=== PATIENT | male | born 1975 | race Caucasian/White ===

== ENCOUNTER 2016-06-08 09:54 | Emergency (ER) | payer OTHER ==
[~2016-06-08] VITALS: Ht 180.3 cm; Wt 89.8 kg
[2016-06-08 10:01] VITALS: TEMP 37; Ht 180.3 cm; Wt 89.8 kg
[2016-06-08] MEDS ORDERED: MONT1TAB3 PO (10:16)
[2016-06-08] MEDS ORDERED: ADVIN25/60 INH (10:16)
[2016-06-08] MEDS ORDERED: CLR10 PO (10:16)
[2016-06-08] MEDS ORDERED: VNTHFA/IN INH (10:16)
[2016-06-08] MEDS ORDERED: FLUT0.15 NAE (10:16)
[2016-06-08] MEDS ORDERED: SODIUM CHLORIDE 0.9% 1000ML 500 ML IV STA (10:19)
[2016-06-08] MEDS ORDERED: ALBUT/IPRATROP 3MG/0.5MG NEB 3 ML VIAL INH STA (10:19)
[2016-06-08] MEDS ORDERED: METHYLPREDNISOLONE 125 MG VIAL IV STA (10:19)
[2016-06-08] MEDS ORDERED: SODIUM CHLORIDE 0.9% 1000ML 1,000 ML IV STA (10:19)
[2016-06-08 10:34] VITALS: O2SAT 97
[2016-06-08 11:22] LABS: BASO % 0.3 %; BASO ABS # 0.02 K/uL (0-0.2); COMPLETE YES; EOS % 2.1 %; HEMATOCRIT 40.7 % (42-52); IG% 0.3 %; LYMPH % 39.3 %; LYMPH ABS # 2.47 K/uL (1.2-3.4); MEAN CELL VOLUME 85.1 fL (80-100); MEAN CORPUSCULAR HEMOGLOBIN 30.5 pg (25-34); MEAN CORPUSCULAR HGB CONC 35.9 g/dl (32-36); MEAN PLATELET VOLUME 8.3 fL (7.4-10.4); MONO % 12.4 %; NEUT % 45.6 %; PLATELET COUNT 224 K/uL (130-400); RED BLOOD COUNT 4.78 M/uL (4.7-6.1); WHITE BLOOD COUNT 6.28 K/uL (4.8-10.8)
--- NOTE | 2016-06-08 11:26 | DIAGNOSTIC IMAGING REPORT ---
CHEST 2 VIEWS ROUTINE CLINICAL HISTORY: sob, cough COMPARISON STUDY: No previous studies for comparison. FINDINGS: The cardiac and mediastinal contours are normal. There is no evidence of focal pulmonary consolidation. There is no evidence of failure. There is minor blunting of the right posterior costophrenic angle.[ IMPRESSION: Blunting of the right posterior costophrenic angle. Otherwise negative chest. No evidence of focal pulmonary consolidation Electronically signed by: Bj Jackson M.D. 06/08/2016 11:25 AM Dictated Date/Time: 06/08/2016 11:24 AM
[2016-06-08 11:48] LABS: ALT/SGPT 63 U/L (12-78); AST/SGOT 24 U/L (15-37); BLOOD UREA NITROGEN 13 mg/dl (7-18); BUN/CREATININE RATIO 13.7 (10-20); CARBON DIOXIDE 28 mmol/L (21-32); CHLORIDE 104 mmol/L (98-107); CREATININE 0.97 mg/dl (0.60-1.40); GLUCOSE 87 mg/dl (70-99); POTASSIUM 3.3 mmol/L (3.5-5.1); SODIUM 137 mmol/L (136-145)
[2016-06-08 11:50] LABS: ALB/GLOB RATIO 1.1 (0.9-2); ALKALINE PHOSPHATASE 48 U/L (45-117)
[2016-06-08] MEDS ORDERED: DOXYCYCLINE HYCLATE 100 MG CAP PO ONE (12:00)
[2016-06-08] MEDS ORDERED: PRED20TA PO (13:02)
[2016-06-08] MEDS ORDERED: DOXY100C PO (13:02)
[2016-06-08 13:03] VITALS: BP 143/88; PULSE 84; O2SAT 98
--- NOTE | 2016-06-08 15:33 | EMERGENCY ROOM VISIT NOTE ---
History Report prepared by Ravi: Emani Mckeon Under the Supervision of: Dr. Noel Lopez M.D. First contact with patient: 10:16 Chief Complaint: SHORTNESS OF BREATH Stated Complaint: COUGH,ASTHMA,SOB History of Present Illness The patient is a 40 year old male who presents to the Emergency Room with complaints of persistent shortness of breath starting about 1 month [employer]. The patient states that his symptoms really started to be present on May 14, 2016. He states he thought he could just recover but on May 19 was seen at [facility] and was told it was either a cold or a sinus infection. He states he was then experiencing shortness of breath with chest tightness, congestion, fluid in ears, cough, and a sore throat. He states he was then given a prescription of Levaquin 750 mg a day and Prednisone for 5 days. He states when he reached the 5th day of medication he was not having relief of symptoms and the got 3 more days of Levaquin and 5 more days of Prednisone. He states that after the 10 days of medication he was having relief of all his symptoms except for his shortness of breath and tightness in his chest. He states that he has been unable to sleep due to his symptoms. The patient states that he has an emergency inhaler which he has been using more recently due to his symptoms. The patient denies getting his flu shot this year. Source of History: patient Onset: 1 month [employer] Position: chest Timing: other (persistent) Associated Symptoms: + chest pain (tightness) Note: Associated symptoms: unable to sleep Review of Systems See HPI for pertinent positives & negatives. A total of 10 systems reviewed and were otherwise negative. Past Medical & Surgical Medical Problems: (1) Asthma Family History Diabetes mellitus Social History Smoking Status: Never Smoker Alcohol Use: occasionally Drug Use: none Marital Status: single Housing Status: lives alone Occupation Status: student Current/Historical Medications Scheduled Doxycycline Hyclate (Vibramycin), 100 MG PO BID Fluticasone Prop/Salmeterol (Advair Diskus 250/50 60 Dose), 1 PUFF INH BID Fluticasone Propionate (Nasal) (Flonase Allergy Relief), 1 SPRAY KENTRELL DAILY Loratadine (Claritin), 10 MG PO DAILY Montelukast Sodium (Singulair), 10 MG PO DAILY Prednisone (Prednisone), 0 PO DAILY Scheduled PRN Albuterol Hfa (Ventolin Hfa), 2-4 PUFFS INH Q6H PRN for Shortness of Breath Allergies Coded Allergies: Dust (Unverified Allergy, Intermediate, TRIGGERS ASTHMA, 06/08/16) Molds & Smuts (Unverified Allergy, Intermediate, TRIGGERS ASTHMA, 06/08/16) Penicillins (Unverified Allergy, Intermediate, TRIGGERS ASTHMA, 06/08/16) Physical Exam Vital Signs Date Time Temp Pulse Resp B/P Pulse Ox O2 Delivery O2 Flow Rate FiO2 06/08/16 13:03 84 19 143/88 98 Room Air 06/08/16 11:32 84 18 149/91 100 Room Air 06/08/16 10:34 97 Room Air 06/08/16 10:17 75 06/08/16 10:05 98 Room Air 06/08/16 10:01 37.0 76 19 132/93 97 Room Air Physical Exam GENERAL: Patient is in no acute distress. HEENT: No acute trauma, normocephalic atraumatic, mucous membranes moist, no nasal congestion, no scleral icterus. No throat erythema or exudates. NECK: No stridor, no adenopathy, no meningismus, trachea is midline. LUNGS: Dry cough noted. Diminished breath sounds bilaterally. Breath sounds are equal bilaterally. No wheezing, crackles or rhonchi. HEART: Without murmurs gallops or rubs, regular rate and rhythm. ABDOMEN: Soft, nontender, bowel sounds positive, no hernias, no peritonitis. EXTREMITIES: No cyanosis or edema, full range of motion of all the joints without pain or difficulty, no signs for acute trauma. NEUROLOGIC: Oriented x 3, no acute motor or sensory deficits, no focal weakness. SKIN: No rash, no jaundice, no diaphoresis. Medical Decision & Procedures ER Provider Diagnostic Interpretation: X-ray results as stated below per interpretation by me and the radiologist: CHEST 2 VIEWS ROUTINE CLINICAL HISTORY: sob, cough COMPARISON STUDY: No previous studies for comparison. FINDINGS: The cardiac and mediastinal contours are normal. There is no evidence of focal pulmonary consolidation. There is no evidence of failure. There is minor blunting of the right posterior costophrenic angle.[ IMPRESSION: Blunting of the right posterior costophrenic angle. Otherwise negative chest. No evidence of focal pulmonary consolidation Electronically signed by: Bj Jackson M.D. 06/08/2016 11:25 AM Dictated Date/Time: 06/08/2016 11:24 AM Laboratory Results 06/08/16 10:40 Red Blood Count 4.78, Mean Corpuscular Volume 85.1, Mean Corpuscular Hemoglobin 30.5, Mean Corpuscular Hemoglobin Concent 35.9, Mean Platelet Volume 8.3, Neutrophils (%) (Auto) 45.6, Lymphocytes (%) (Auto) 39.3, Monocytes (%) (Auto) 12.4, Eosinophils (%) (Auto) 2.1, Basophils (%) (Auto) 0.3, Neutrophils # (Auto ) 2.86, Lymphocytes # (Auto) 2.47, Monocytes # (Auto) 0.78, Eosinophils # (Auto ) 0.13, Basophils # (Auto) 0.02 06/08/16 10:40 Test 06/08/16 10:30 06/08/16 10:40 Influenza Type A Antigen Neg for Influ A (NEG) Influenza Type B Antigen Neg for Influ B (NEG) White Blood Count 6.28 K/uL (4.8-10.8) Red Blood Count 4.78 M/uL (4.7-6.1) Hemoglobin 14.6 g/dL (14.0-18.0) Hematocrit 40.7 % (42-52) Mean Corpuscular Volume 85.1 fL (80-100) Mean Corpuscular Hemoglobin 30.5 pg (25-34) Mean Corpuscular Hemoglobin Concent 35.9 g/dl (32-36) Platelet Count 224 K/uL (130-400) Mean Platelet Volume 8.3 fL (7.4-10.4) Neutrophils (%) (Auto) 45.6 % Lymphocytes (%) (Auto) 39.3 % Monocytes (%) (Auto) 12.4 % Eosinophils (%) (Auto) 2.1 % Basophils (%) (Auto) 0.3 % Neutrophils # (Auto) 2.86 K/uL (1.4-6.5) Lymphocytes # (Auto) 2.47 K/uL (1.2-3.4) Monocytes # (Auto) 0.78 K/uL (0.11-0.59) Eosinophils # (Auto) 0.13 K/uL (0-0.5) Basophils # (Auto) 0.02 K/uL (0-0.2) RDW Standard Deviation 38.7 fL (36.4-46.3) RDW Coefficient of Variation 12.5 % (11.5-14.5) Immature Granulocyte % (Auto) 0.3 % Immature Granulocyte # (Auto) 0.02 K/uL (0.00-0.02) Anion Gap 5.0 mmol/L (3-11) Est Creatinine Clear Calc Drug Dose 109.9 ml/min Estimated GFR () 114.3 Estimated GFR (Non- 98.6 BUN/Creatinine Ratio 13.7 (10-20) Calcium Level 9.0 mg/dl (8.5-10.1) Total Bilirubin 0.6 mg/dl (0.2-1) Aspartate Amino Transf (AST/SGOT) 24 U/L (15-37) Alanine Aminotransferase (ALT/SGPT) 63 U/L (12-78) Alkaline Phosphatase 48 U/L (45-117) Troponin I < 0.015 ng/ml (0-0.045) Total Protein 7.2 gm/dl (6.4-8.2) Albumin 3.8 gm/dl (3.4-5.0) Globulin 3.4 gm/dl (2.5-4.0) Albumin/Globulin Ratio 1.1 (0.9-2) Laboratory results reviewed by me. Medications Administered Medications (Trade) Dose Ordered Sig/Matthew Route Start Time Stop Time Status Last Admin Dose Admin Sodium Chloride 500 ml @ 999 mls/hr Q31M STAT IV 06/08/16 10:06/08/16 10:49 DC 06/08/16 10:51 999 MLS/HR Sodium Chloride (Nss 1000ml) 1,000 ml @ 200 mls/hr Q5H STAT IV 06/08/16 10:06/08/16 14:02 DC 06/08/16 10:52 200 MLS/HR Methylprednisolone Sodium Succinate (Solu-Medrol IV) 80 mg NOW STAT IV 06/08/16 10:19 06/08/16 10:23 DC 06/08/16 10:51 80 MG Albuterol/ Ipratropium (Duoneb) 3 ml NOW STAT INH 06/08/16 10:19 06/08/16 10:23 DC 06/08/16 10:50 3 ML Doxycycline Hyclate (Vibramycin Cap) 100 mg ONE ONCE PO 06/08/16 12:00 06/08/16 12:01 DC 06/08/16 12:00 100 MG ECG Indication: SOB/dyspnea Rate (beats per minute): 67 Rhythm: normal sinus Findings: no acute ischemic change, no ectopy ED Course 1018: The patient was evaluated in room A12B. A complete history and physical exam was performed. 1019: Ordered Duoneb 3 ml INH, Solu-Medrol IV 80 mg IV, Sodium Chloride 1,000 ml @ 200 mls/hr IV, Sodium Chloride 500 ml @ 999 mls/hr IV. 1200: Ordered Vibramycin Cap 100 mg PO. 1250: Reevaluated the patient. Discussed results and discharge instructions: He verbalized understanding and agreement. The patient is ready for discharge. Medical Decision The patient is a 40 year old male who presents to the ED with complaints of shortness of breath. Differential diagnoses considered include bronchitis, pneumonia, pneumothorax, CHF, influenza, electrolyte imbalance, cardiac ischemia. There is no leukocytosis or concerning anemia. No significant electrolyte abnormality, kidney failure or hepatitis. Influenza testing is negative. Chest film shows no pneumonia or CHF. EKG shows a normal sinus rhythm, no acute ischemia. Cardiac enzyme testing times one is not consistent with acute cardiac injury. Patient received IV saline, IV Solu-Medrol, a DuoNeb. He was given a dose of oral doxycycline. The patient very likely has an acute bronchitis with a flare of his asthma. He is being discharged on doxycycline, a steroid taper, frequent albuterol use. He can return if worsening or not improving. Impression Primary Impression: Acute bronchitis Additional Impression: Acute asthma exacerbation Scribe Attestation The scribe's documentation has been prepared under my direction and personally reviewed by me in its entirety. I confirm that the note above accurately reflects all work, treatment, procedures, and medical decision making performed by me. Departure Information Dispostion Home / Self-Care Prescriptions Doxycycline Hyclate (VIBRAMYCIN) 100 Mg Cap 100 MG PO BID for 10 Days, #20 CAP Prov: Noel Lopez M.D. 06/08/16 Prednisone (Prednisone) 20 Mg Tab 0 PO DAILY, #14 TAB 3 TABS DAILY FOR 2 DAYS, THEN 2 TABS DAILY FOR 2 DAYS, THEN 1 TAB DAILY FOR 2 DAYS, THEN 1/2 TAB DAILY FOR 2 DAYS. Prov: Noel Lopez M.D. 06/08/16 Referrals [facility] (PCP) Forms HOME CARE DOCUMENTATION FORM, IMPORTANT VISIT INFORMATION Patient Instructions My [facility] Additional Instructions doxycycline 2x per day for 10 days albuterol 3 puffs every 4 hours prednisone as directed fluids rest return if worsening or not improving chest film today was ok Problem Qualifiers
== END 2016-06-08 13:11 | disposition home or self-care (01) ==
LOC: C.EDB 09:57 → C.EDA 13:11
DX: J45.901 Unspecified asthma with (acute) exacerbation (principal); J20.9 Acute bronchitis, unspecified; Z83.3 Family history of diabetes mellitus; Z79.899 Other long term (current) drug therapy

== ENCOUNTER 2017-06-08 13:00 | Emergency (ER) | payer OTHER ==
[~2017-06-08] VITALS: Ht 180.3 cm; Wt 90.2 kg
[~2017-06-08 13:00] MED LIST: ADVIN25/60 INH; CLR10 PO; FLUT0.15 NAE; MONT1TAB3 PO; VNTHFA/IN INH
[2017-06-08 13:11] VITALS: TEMP 37; Ht 180.3 cm; Wt 90.2 kg
[2017-06-08] MEDS ORDERED: ALBUT/IPRATROP 3MG/0.5MG NEB 3 ML VIAL INH STA ×2 (14:37→16:01)
[2017-06-08] MEDS ORDERED: METHYLPREDNISOLONE 125 MG VIAL IV STA (14:38)
[2017-06-08 14:49] VITALS: O2SAT 99
[2017-06-08 15:05] LABS: BASO % 0.1 %; BASO ABS # 0.01 K/uL (0-0.2); EOS % 0.3 %; EOS ABS # 0.02 K/uL (0-0.5); HEMATOCRIT 46.7 % (42-52); HEMOGLOBIN 16.4 g/dL (14.0-18.0); IG# 0.02 K/uL (0.00-0.02); LYMPH % 12.6 %; LYMPH ABS # 0.99 K/uL (1.2-3.4); MEAN CELL VOLUME 87.1 fL (80-100); MEAN CORPUSCULAR HEMOGLOBIN 30.6 pg (25-34); MEAN CORPUSCULAR HGB CONC 35.1 g/dl (32-36); MEAN PLATELET VOLUME 8.5 fL (7.4-10.4); MONO % 11.6 %; MONO ABS # 0.91 K/uL (0.11-0.59); NEUT % 75.1 %; PLATELET COUNT 194 K/uL (130-400); RED CELL DISTRIBUTION WIDTH CV 12.6 % (11.5-14.5); RED CELL DISTRIBUTION WIDTH SD 40.4 fL (36.4-46.3); WHITE BLOOD COUNT 7.85 K/uL (4.8-10.8)
--- NOTE | 2017-06-08 15:21 | DIAGNOSTIC IMAGING REPORT ---
CHEST ONE VIEW PORTABLE CLINICAL HISTORY: EVALUATE RESPIRATORY DISTRESS.DYSPNEA COMPARISON STUDY: Chest radiograph June 08, 2016. FINDINGS: The lung volumes are normal. No pneumothorax or pleural effusion is noted. There is no consolidation or evidence of pulmonary edema. Cardiomediastinal silhouette is normal. IMPRESSION: No acute cardiopulmonary findings. Electronically signed by: Edson Negrete M.D. 06/08/2017 3:20 PM Dictated Date/Time: 06/08/2017 3:20 PM
[2017-06-08 15:22] LABS: ALBUMIN 4.2 gm/dl (3.4-5.0); ALT/SGPT 33 U/L (12-78); BLOOD UREA NITROGEN 12 mg/dl (7-18); CALCIUM 8.9 mg/dl (8.5-10.1); CARBON DIOXIDE 29 mmol/L (21-32); CREATININE 1.26 mg/dl (0.60-1.40); GLUCOSE 95 mg/dl (70-99); POTASSIUM 3.4 mmol/L (3.5-5.1); SODIUM 139 mmol/L (136-145)
[2017-06-08 15:27] LABS: ALKALINE PHOSPHATASE 49 U/L (45-117); AST/SGOT 21 U/L (15-37); CKMB 0.6 ng/ml (0.5-3.6); TOTAL PROTEIN 7.8 gm/dl (6.4-8.2)
[2017-06-08] MEDS ORDERED: OSEL75CA23 PO (15:43)
[2017-06-08] MEDS ORDERED: PRED20TA PO (15:43)
[2017-06-08] MEDS ORDERED: FLUT1AER4 INH (15:43)
[2017-06-08] MEDS ORDERED: ALBINS/ INH (15:43)
--- NOTE | 2017-06-08 15:59 | EMERGENCY ROOM VISIT NOTE ---
History Report prepared by Ravi: Karol Child Under the Supervision of: Dr. Yang Emanuel M.D. First contact with patient: 14:20 Chief Complaint: FLU LIKE SX Stated Complaint: FEVER, CHILLS, WHEEZING, COUGHING, MUCUS, ASTHMA History of Present Illness The patient is a 41 year old male who presents to the Emergency Room with complaints of worsening generalized illness beginning about a week ago. The patient notes fevers, chills, sorethroat, body aches, chest tightness, coughing , and wheezing. The patient was recently diagnosed with influenza. The patient has a history of asthma. He states that over the past three days his asthmatic symptoms of wheezing and chest tightness have worsened. The patient was put on prednisone, Tamiflu and nebulizer treatments. He reports no relief with his nebulizer treatments. The patient is on day three of his prednisone taper. The patient recently traveled to [place]. Pt denies LOC, headache, diaphoresis, visual changes, neck pain, nausea, vomiting, abdominal pain, back pain, melena, hematochezia, urinary symptoms, leg pain, numbness, weakness, lymphadenopathy, rash, or other complaints. Source of History: patient Onset: a week ago Position: other (generalized) Quality: other (illness) Timing: worsening Associated Symptoms: + fevers, + chills, + sorethroat, + cough, + SOB Review of Systems See HPI for pertinent positives and negatives. A total of ten systems were reviewed and were otherwise negative. Past Medical & Surgical Medical Problems: (1) Asthma Family History Diabetes mellitus Social History Smoking Status: Never Smoker Alcohol Use: occasionally Drug Use: none Marital Status: single Housing Status: lives alone Occupation Status: student Current/Historical Medications Scheduled Albuterol Sulf (Proventil 0.083% 2.5MG/3ML), 2.5 MG INH Q4H Azithromycin (Zithromax), 250 MG PO DAILY Fluticasone Prop/Salmeterol (Advair Diskus 250/50 60 Dose), 1 PUFF INH BID Fluticasone Propionate (Inhala (Flovent Diskus), 1 PUFF INH BID Fluticasone Propionate (Nasal) (Flonase Allergy Relief), 1 SPRAY KENTRELL DAILY Montelukast Sodium (Singulair), 10 MG PO HS Oseltamivir Phosphate (Tamiflu), 75 MG PO BID Prednisone (Prednisone), 1 DOSE PO UD Scheduled PRN Albuterol Hfa (Ventolin Hfa), 2-4 PUFFS INH Q6H PRN for Shortness of Breath Allergies Coded Allergies: Dust (Unverified Allergy, Intermediate, TRIGGERS ASTHMA, 06/08/17) Molds & Smuts (Unverified Allergy, Intermediate, TRIGGERS ASTHMA, 06/08/17) Penicillins (Unverified Allergy, Intermediate, TRIGGERS ASTHMA, 06/08/17) Physical Exam Vital Signs Date Time Temp Pulse Resp B/P (MAP) Pulse Ox O2 Delivery O2 Flow Rate FiO2 06/08/17 18:05 107 18 127/81 97 06/08/17 17:00 100 18 95 Room Air 06/08/17 16:15 99 20 137/80 98 Room Air 06/08/17 15:17 103 06/08/17 14:57 102 20 138/94 99 Room Air 06/08/17 14:49 99 Room Air 06/08/17 14:49 99 Room Air 06/08/17 13:11 37.0 106 20 131/90 97 Room Air Physical Exam GENERAL: Awake, alert, uncomfortable-appearing, in no distress HENT: Normocephalic, atraumatic. Oropharynx unremarkable. EYES: Normal conjunctiva. Sclera non-icteric. NECK: Supple. No nuchal rigidity. FROM. No masses. RESPIRATORY: Coarse breath sounds bilaterally. No wheezes. CARDIAC: Tachycardic rate. Normal rhythm. No murmurs. No rubs. Extremities warm and well perfused. Pulses equal. No JVD. GI: Soft, non-distended. No tenderness to palpation. No rebound or guarding. No masses. RECTAL: Deferred. MUSCULOSKELETAL: Atraumatic. Chest examination reveals no tenderness. The back is symmetrical on inspection without obvious abnormality. There is no CVA tenderness to palpation. No joint edema. LOWER EXTREMITIES: Calves are equal size bilaterally and non-tender. No edema. No discoloration. NEURO: Normal sensorium. No sensory or motor deficits noted. SKIN: No rash or jaundice noted. Medical Decision & Procedures ER Provider Diagnostic Interpretation: Radiology results as stated below per my review and radiologist interpretation: CHEST ONE VIEW PORTABLE FINDINGS: The lung volumes are normal. No pneumothorax or pleural effusion is noted. There is no consolidation or evidence of pulmonary edema. Cardiomediastinal silhouette is normal. IMPRESSION: No acute cardiopulmonary findings. Electronically signed by: Edson Negrete M.D. Laboratory Results 06/08/17 14:40 Red Blood Count 5.36, Mean Corpuscular Volume 87.1, Mean Corpuscular Hemoglobin 30.6, Mean Corpuscular Hemoglobin Concent 35.1, Mean Platelet Volume 8.5, Neutrophils (%) (Auto) 75.1, Lymphocytes (%) (Auto) 12.6, Monocytes (%) (Auto) 11.6, Eosinophils (%) (Auto) 0.3, Basophils (%) (Auto) 0.1, Neutrophils # (Auto ) 5.90, Lymphocytes # (Auto) 0.99, Monocytes # (Auto) 0.91, Eosinophils # (Auto ) 0.02, Basophils # (Auto) 0.01 06/08/17 14:40 Test 06/08/17 14:40 06/08/17 14:55 06/08/17 16:00 White Blood Count 7.85 K/uL (4.8-10.8) Red Blood Count 5.36 M/uL (4.7-6.1) Hemoglobin 16.4 g/dL (14.0-18.0) Hematocrit 46.7 % (42-52) Mean Corpuscular Volume 87.1 fL (80-100) Mean Corpuscular Hemoglobin 30.6 pg (25-34) Mean Corpuscular Hemoglobin Concent 35.1 g/dl (32-36) Platelet Count 194 K/uL (130-400) Mean Platelet Volume 8.5 fL (7.4-10.4) Neutrophils (%) (Auto) 75.1 % Lymphocytes (%) (Auto) 12.6 % Monocytes (%) (Auto) 11.6 % Eosinophils (%) (Auto) 0.3 % Basophils (%) (Auto) 0.1 % Neutrophils # (Auto) 5.90 K/uL (1.4-6.5) Lymphocytes # (Auto) 0.99 K/uL (1.2-3.4) Monocytes # (Auto) 0.91 K/uL (0.11-0.59) Eosinophils # (Auto) 0.02 K/uL (0-0.5) Basophils # (Auto) 0.01 K/uL (0-0.2) RDW Standard Deviation 40.4 fL (36.4-46.3) RDW Coefficient of Variation 12.6 % (11.5-14.5) Immature Granulocyte % (Auto) 0.3 % Immature Granulocyte # (Auto) 0.02 K/uL (0.00-0.02) Anion Gap 9.0 mmol/L (3-11) Est Creatinine Clear Calc Drug Dose 83.8 ml/min Estimated GFR () 82.7 Estimated GFR (Non- 71.4 BUN/Creatinine Ratio 9.8 (10-20) Calcium Level 8.9 mg/dl (8.5-10.1) Total Bilirubin 0.6 mg/dl (0.2-1) Aspartate Amino Transf (AST/SGOT) 21 U/L (15-37) Alanine Aminotransferase (ALT/SGPT) 33 U/L (12-78) Alkaline Phosphatase 49 U/L (45-117) Total Creatine Kinase 281 U/L (39-308) Creatine Kinase MB 0.6 ng/ml (0.5-3.6) Creatine Kinase MB Ratio 0.2 (0-3.0) Troponin I < 0.015 ng/ml (0-0.045) Total Protein 7.8 gm/dl (6.4-8.2) Albumin 4.2 gm/dl (3.4-5.0) Globulin 3.6 gm/dl (2.5-4.0) Albumin/Globulin Ratio 1.2 (0.9-2) Bedside D-Dimer 249 ng/mlFEU (0-450) Urine Color DK YELLOW Urine Appearance CLEAR (CLEAR) Urine pH 5.5 (4.5-7.5) Urine Specific Ira 1.022 (1.000-1.030) Urine Protein NEG (NEG) Urine Glucose (UA) NEG (NEG) Urine Ketones NEG (NEG) Urine Occult Blood NEG (NEG) Urine Nitrite NEG (NEG) Urine Bilirubin NEG (NEG) Urine Urobilinogen NEG (NEG) Urine Leukocyte Esterase TRACE (NEG) Urine WBC (Auto) 1-5 /hpf (0-5) Urine RBC (Auto) 0-4 /hpf (0-4) Urine Hyaline Casts (Auto) 5-10 /lpf (0-5) Urine Epithelial Cells (Auto) 0-5 /lpf (0-5) Urine Bacteria (Auto) NEG (NEG) Laboratory results reviewed by me Medications Administered Medications (Trade) Dose Ordered Sig/Matthew Route Start Time Stop Time Status Last Admin Dose Admin Albuterol/ Ipratropium (Duoneb) 3 ml NOW STAT INH 06/08/17 14:37 06/08/17 14:38 DC 06/08/17 14:54 3 ML Methylprednisolone Sodium Succinate (Solu-Medrol IV) 125 mg NOW STAT IV 06/08/17 14:38 06/08/17 14:39 DC 06/08/17 14:54 125 MG Albuterol/ Ipratropium (Duoneb) 3 ml NOW STAT INH 06/08/17 16:01 06/08/17 16:02 DC 06/08/17 16:21 3 ML Azithromycin (Zithromax Tab) 500 mg NOW STAT PO 06/08/17 16:50 06/08/17 16:51 DC 06/08/17 18:07 500 MG ECG Per My Interpretation Indication: chest pain Rate (beats per minute): 95 Rhythm: normal sinus Findings: no acute ischemic change, no ectopy, other (normal intervals, no pericarditis ) ED Course 1428: The patient was evaluated in room C7. A complete history and physical exam was performed. 1437: Ordered Duoneb 3 ml INH. 1438: Ordered Solu-Medrol IV 125 mg IV. 1559: I updated the patient on his test results. He is still complaining of some wheezing. 1601: Ordered Duoneb 3 ml INH. 1647: The patient is resting comfortably. Will do ambulatory pulse ox. 1650: Ordered Zithromax Tab 500 mg PO. 1735: The patient passed ambulatory pulse ox and is feeling better. 1754: I reevaluated the patient. Discussed results and discharge instructions: He verbalized understanding and agreement. The patient is ready for discharge. Medical Decision Triage Nursing notes reviewed. The patient's presentation and history were concerning for SOB and influenzae. Etiologies such as pneumonia, COPD, reactive airway disease, CHF, cardiac ischemia, pulmonary embolism, pneumothorax, musculoskeletal, infections, gastrointestinal, as well as others were entertained. The patient was evaluated. He has been confirmed with influenza and has asthma. He is on Tamiflu, prednisone, and bronchodilators. He states that he is feeling worse. His ulnar examination revealed a slight amount of coarse breath sounds. He had no hypoxia. There is no retractions. The patient also has a history of recent travel. He denied any leg pain or swelling to suggest DVT. He has no family history of personal history of the same. The patient was given a DuoNeb as well as IV Solu-Medrol. Chest x-ray was performed and was negative. His CBC, chemistry panel, LFTs, cardiac markers, and d-dimer were all normal. The patient was reassessed. He was given a second nebulizer treatment. He was reassessed and was feeling somewhat better. Laboratory pulse ox was performed and was unremarkable. Patient had a mild borderline tachycardia. He was afebrile. He is currently taking Tamiflu and prednisone. He has a nebulizer and inhaler at home. He does note a productive cough. Given his contact with a significant number of people at the [facility] I discussed conservatively treat him with Zithromax for additional coverage in case this may be a atypical infection. If he worsens in any way or does not improve he was directed back to the emergency department for a recheck. The patient felt comfortable with this plan. By the evaluation outlined above other emergent etiologies such as those listed in the differential, as well as others, were deemed relatively unlikely. The patient was educated about the findings as listed above. All questions were answered and the patient was pleased with the treatment. Return instructions were outlined and the patient was discharged in stable condition. The patient was referred to his PCP for follow-up for a recheck of the current condition. Medication Reconcilliation Current Medication List: was personally reviewed by me Blood Pressure Screening Patient's blood pressure: Elevated blood pressure Blood pressure disposition: Elevated BP felt to be situational Impression Primary Impression: SOB (shortness of breath) Additional Impressions: Asthma Influenza Scribe Attestation The scribe's documentation has been prepared under my direction and personally reviewed by me in its entirety. I confirm that the note above accurately reflects all work, treatment, procedures, and medical decision making performed by me. Departure Information Dispostion Home / Self-Care Prescriptions Azithromycin (ZITHROMAX) 250 Mg Tab 250 MG PO DAILY, #4 TAB Prov: Yang Emanuel MD 06/08/17 Referrals [facility] (PCP) Forms HOME CARE DOCUMENTATION FORM, IMPORTANT VISIT INFORMATION Patient Instructions My [facility] Additional Instructions Albuterol Inhaler: Take 2 puffs four times daily for five days, then as needed. And/or Albuterol nebulizer: One every 4-6 hours as needed for breathing difficulty Or wheezing. Prednisone prescription: Finish as directed. Azithromycin(Zithromax) 250mg: Take one a day for 4 additional days. All antibiotics can cause diarrhea. If this occurs and you feel worse or it does not resolve in 1-2 days follow up with your doctor or return to the Emergency Department as this could be signs of serious underlying problems. Any medication can cause an allergic reaction, stop the pills immediately and return to the ER for rash, hives, breathing difficulties, or swelling. Acetaminophen(Tylenol) may be used for fever or pain. Use 1000mg every six hours as needed. Avoid using more than 4000mg in a 24 hour period. (AND/OR) Ibuprofen(Motrin, Advil) may be used for fever or pain. Use 600mg every six hours as needed. Take with food. Avoid using more than 2400mg in a 24 hour period. Do not use 2400mg per day for more than three consecutive days without physician direction. Prolonged inappropriate use can lead to stomach upset or ulcers. Rest and drink plenty of fluids. Avoid smoke/smoking, fumes, dust, or any triggers in the past that may have affected your breathing. Continue current medications. Return to the ER for chest pain, difficulty breathing, fevers, vomiting, worsening of your condition, or as needed. Follow up with your primary physician in one to 2 days for a recheck of your current condition. Problem Qualifiers
[2017-06-08] MEDS ORDERED: AZITHROMYCIN 250 MG TAB PO STA (16:50)
[2017-06-08] MEDS ORDERED: AZIT-60 PO (17:50)
[2017-06-08 18:05] VITALS: BP 127/81; PULSE 107; O2SAT 97
== END 2017-06-08 18:05 | disposition home or self-care (01) ==
LOC: C.EDB 13:00 → C.EDC 18:05
DX: R06.02 Shortness of breath (principal); J45.909 Unspecified asthma, uncomplicated; J10.1 Influenza due to other identified influenza virus with other respiratory manifestations; Z83.3 Family history of diabetes mellitus; Z88.0 Allergy status to penicillin; Z91.048 Other nonmedicinal substance allergy status